=== PATIENT | female | born 1995 | race Caucasian/White ===

== ENCOUNTER 2018-04-11 15:24 | Outpatient (CLI) | payer BC, OTHER ==
[~2018-04-11 15:24] MED LIST: CIPRO500 MG PO; SPRINTEC1 EACH PO
[2018-04-11 15:58] LABS: BASOPHIL (%) 0.2 % (0-1); EOSINOPHIL (%) 0.6 % (0-5); EOSINOPHIL COUNT 0.1 K/uL (0-0.3); HEMATOCRIT 33.9 % (36.0-46.0); HEMOGLOBIN 11.4 G/DL (11.9-15.5); IMMATURE GRANULOCYTE (%) 0.7 % (0.0-0.7); LYMPHOCYTE (%) 19.4 % (15-42); LYMPHOCYTE COUNT 2.5 K/uL (1.0-2.8); MCH 31.9 PG (29.0-34.0); MCHC 33.6 G/DL (30.0-36.0); MONOCYTE (%) 6.4 % (3-12); MONOCYTE COUNT 0.8 K/uL (0-0.8); NEUTROPHIL (%) 72.7 % (45-76); NEUTROPHIL COUNT 9.3 K/uL (1.8-6.4); PLATELET COUNT 195 K/uL (156-360); RBC DIS.WIDTH-CV 13.6 % (11.8-14.6); RBC DIS.WIDTH-SD 47.2 % (39-53); RED BLOOD COUNT 3.57 M/uL (3.80-5.20); WHITE BLOOD COUNT 12.8 K/uL (4.1-10.2)
[2018-04-11 16:03] VITALS: BP 129/68
[2018-04-11] MEDS ORDERED: PRENATAL TABLE1 EAC3 PO (16:05)
[2018-04-11] MEDS ORDERED: VITAMIN D31000 UNI2 PO (16:06)
[2018-04-11 16:09] LABS: ALBUMIN 3.4 g/dL (3.2-4.8); CHLORIDE 110 mEq/L (99-109); POTASSIUM 3.8 mEq/L (3.7-5.4); SODIUM 138 mEq/L (136-147)
[2018-04-11 16:12] LABS: GLUCOSE 111 mg/dL (70-99); TOTAL PROTEIN 6.7 g/dL (6.4-8.3)
[2018-04-11 16:13] LABS: TOTAL BILIRUBIN 0.2 mg/dL (0.0-1.0)
[2018-04-11 16:15] LABS: ALKALINE PHOSPHATASE 129 IU/L (3-129); CREATININE 0.6 mg/dL (0.6-1.3); GFR ESTIMATE (CALCULATED) > 59 mL/min/
[2018-04-11 16:16] LABS: UREA NITROGEN (BUN) 6 mg/dL (9-23)
[2018-04-11 16:17] LABS: AST (GOT) 11 IU/L (2-34)
[2018-04-11 16:18] VITALS: BP 125/61
[2018-04-11 16:18] LABS: ALT (GPT) 9 IU/L (3-49)
[2018-04-11 16:33] VITALS: BP 112/61
[2018-04-11 16:46] LABS: UR CREATININE CONCENTRATION 88.6 MG/DL
== END 2018-04-11 17:40 | disposition home or self-care (01) ==
LOC: LDRP-OP 15:24 → 2WEST 15:25 → LDRP-OP 05-20 09:36
PROVIDERS: Nurse Practitioner
DX: O16.3 Unspecified maternal hypertension, third trimester (principal); O99.213 Obesity complicating pregnancy, third trimester; E66.9 Obesity, unspecified; Z3A.38 38 weeks gestation of pregnancy
CPT/HCPCS: 59025; 80053; 82570; 84156; 85025; G0378

== ENCOUNTER 2018-04-16 10:21 | Outpatient (CLI) | payer BC, OTHER ==
[~2018-04-16] VITALS: Ht 157.5 cm; Wt 110.0 kg
[~2018-04-16 10:21] MED LIST changes: +PRENATAL TABLE1 EAC3 PO; +VITAMIN D31000 UNI2 PO
[2018-04-16 10:37] VITALS: BP 135/79
[2018-04-16 10:53] VITALS: BP 135/78
[2018-04-16 11:08] VITALS: BP 135/80
[2018-04-16 11:36] LABS: BASOPHIL (%) 0.3 % (0-1); EOSINOPHIL (%) 0.6 % (0-5); EOSINOPHIL COUNT 0.1 K/uL (0-0.3); HEMATOCRIT 33.6 % (36.0-46.0); HEMOGLOBIN 11.1 G/DL (11.9-15.5); IMMATURE GRANULOCYTE (%) 1.2 % (0.0-0.7); LYMPHOCYTE (%) 16.8 % (15-42); MCH 31.6 PG (29.0-34.0); MCV 95.7 FL (83-99); MONOCYTE (%) 5.2 % (3-12); MONOCYTE COUNT 0.6 K/uL (0-0.8); NEUTROPHIL (%) 75.9 % (45-76); NEUTROPHIL COUNT 8.9 K/uL (1.8-6.4); PLATELET COUNT 166 K/uL (156-360); RBC DIS.WIDTH-CV 13.9 % (11.8-14.6); RBC DIS.WIDTH-SD 48.1 % (39-53); RED BLOOD COUNT 3.51 M/uL (3.80-5.20); WHITE BLOOD COUNT 11.8 K/uL (4.1-10.2)
[2018-04-16 11:48] LABS: ALBUMIN 3.3 g/dL (3.2-4.8); CHLORIDE 107 mEq/L (99-109); SODIUM 138 mEq/L (136-147)
[2018-04-16 11:52] LABS: GLUCOSE 106 mg/dL (70-99)
[2018-04-16 11:52] LABS: UR CREATININE CONCENTRATION 114.2 MG/DL
[2018-04-16 11:54] LABS: ALKALINE PHOSPHATASE 129 IU/L (3-129); CREATININE 0.6 mg/dL (0.6-1.3); GFR ESTIMATE (CALCULATED) > 59 mL/min/
[2018-04-16 11:55] LABS: TOTAL BILIRUBIN 0.3 mg/dL (0.0-1.0); UREA NITROGEN (BUN) 7 mg/dL (9-23)
[2018-04-16 11:56] LABS: AST (GOT) 11 IU/L (2-34)
[2018-04-16 11:57] LABS: ALT (GPT) 9 IU/L (3-49)
== END 2018-04-16 12:41 | disposition home or self-care (01) ==
LOC: LDRP-OP 10:21 → 2WEST 10:22 → LDRP-OP 05-20 18:05
PROVIDERS: Nurse Practitioner
DX: O16.3 Unspecified maternal hypertension, third trimester (principal); Z68.36 Body mass index [BMI] 36.0-36.9, adult; Z3A.39 39 weeks gestation of pregnancy
CPT/HCPCS: 59025; 80053; 82570; 84156; 85025; G0378

== ENCOUNTER 2018-04-21 10:30 | Outpatient (CLI) | payer BC, OTHER ==
[~2018-04-21] VITALS: Ht 157.5 cm; Wt 110.2 kg
[2018-04-21 10:47] VITALS: BP 117/66
[2018-04-21 11:10] VITALS: BP 112/68
[2018-04-21 11:27] LABS: APPEARANCE CLOUDY ((CLEAR)); BILIRUBIN NEGATIVE; BLOOD LARGE; COLOR YELLOW ((YELLOW)); GLUCOSE (STRIP) NEGATIVE; KETONES NEGATIVE; LEUKOCYTES SMALL; NITRITE NEGATIVE; PROTEIN (STRIP) 100; SPECIFIC GRAVITY 1.016 (1.000-1.030); UROBILINOGEN 0.2 MG/DL (0.2-1.0)
[2018-04-21 11:45] VITALS: BP 115/57
[2018-04-21 11:45] LABS: EPITHELIAL CELLS 4+ /HPF; RED BLOOD CELLS TNTC /HPF (0-5)
[2018-04-21 11:46] LABS: BACTERIA 2+ /HPF; MUCUS 1+ /LPF; UCUL ADDED? YES
[2018-04-21 12:14] LABS: BASOPHIL (%) 0.2 % (0-1); EOSINOPHIL (%) 0.6 % (0-5); EOSINOPHIL COUNT 0.1 K/uL (0-0.3); HEMATOCRIT 33.6 % (36.0-46.0); HEMOGLOBIN 11.4 G/DL (11.9-15.5); IMMATURE GRANULOCYTE (%) 0.8 % (0.0-0.7); LYMPHOCYTE (%) 16.4 % (15-42); MCHC 33.9 G/DL (30.0-36.0); MCV 94.4 FL (83-99); MONOCYTE (%) 4.9 % (3-12); MONOCYTE COUNT 0.6 K/uL (0-0.8); NEUTROPHIL (%) 77.1 % (45-76); NEUTROPHIL COUNT 9.5 K/uL (1.8-6.4); PLATELET COUNT 159 K/uL (156-360); RBC DIS.WIDTH-CV 13.8 % (11.8-14.6); RBC DIS.WIDTH-SD 47.4 % (39-53); RED BLOOD COUNT 3.56 M/uL (3.80-5.20); WHITE BLOOD COUNT 12.3 K/uL (4.1-10.2)
[2018-04-21 12:22] LABS: UR CREATININE CONCENTRATION 141.1 MG/DL
[2018-04-21 12:26] LABS: ALBUMIN 3.4 g/dL (3.2-4.8)
[2018-04-21 12:27] LABS: CHLORIDE 107 mEq/L (99-109); POTASSIUM 3.8 mEq/L (3.7-5.4); SODIUM 138 mEq/L (136-147)
[2018-04-21 12:29] LABS: GLUCOSE 108 mg/dL (70-99); TOTAL PROTEIN 6.6 g/dL (6.4-8.3)
[2018-04-21 12:31] LABS: TOTAL BILIRUBIN 0.3 mg/dL (0.0-1.0)
[2018-04-21 12:32] LABS: ALKALINE PHOSPHATASE 126 IU/L (3-129)
[2018-04-21 12:33] LABS: CREATININE 0.6 mg/dL (0.6-1.3); GFR ESTIMATE (CALCULATED) > 59 mL/min/
[2018-04-21 12:34] LABS: AST (GOT) 12 IU/L (2-34); UREA NITROGEN (BUN) 9 mg/dL (9-23)
[2018-04-21 12:35] LABS: ALT (GPT) 9 IU/L (3-49)
[2018-04-21] MEDS ORDERED: AMOXICILLIN500 M1 PO (12:56)
== END 2018-04-21 13:20 | disposition home or self-care (01) ==
LOC: LDRP-OP 10:30 → 2WEST 10:31 → LDRP-OP 04-30 13:07
PROVIDERS: Midwife
DX: O23.43 Unspecified infection of urinary tract in pregnancy, third trimester (principal); O99.213 Obesity complicating pregnancy, third trimester; E66.9 Obesity, unspecified; Z68.39 Body mass index [BMI] 39.0-39.9, adult; Z87.440 Personal history of urinary (tract) infections; Z3A.40 40 weeks gestation of pregnancy
CPT/HCPCS: 59025; 80053; 81003; 82570; 84156; 85025; 87086; G0378

== ENCOUNTER 2018-04-26 21:50 | Outpatient (CLI) | payer BC, OTHER ==
[~2018-04-26 21:50] MED LIST changes: +AMOXICILLIN500 M1 PO
[2018-04-26 22:08] VITALS: BP 127/73
[2018-04-27] MEDS ORDERED: AMOXICILLIN500 M1 PO (09:44)
== END 2018-04-26 23:03 | disposition home or self-care (01) ==
LOC: LDRP-OP 21:50 → 2WEST 21:51 → LDRP-OP 04-30 13:29
DX: O26.893 Other specified pregnancy related conditions, third trimester (principal); Z3A.41 41 weeks gestation of pregnancy
CPT/HCPCS: 59025; G0378

== ENCOUNTER 2018-04-27 08:55 | Inpatient (IN) | payer BC, OTHER ==
[~2018-04-27] VITALS: Ht 157.5 cm; Wt 111.3 kg
[2018-04-27] VITALS (31 sets, daily range): BP systolic 80–143; BP diastolic 49–86
[2018-04-27] MEDS ORDERED: AMOXICILLIN500 M1 PO (09:44)
[2018-04-27 12:05] LABS: AMPHETAMINE NEGATIVE (500 ng/mL); BARBITURATES NEGATIVE (200 ng/mL); BENZODIAZEPINES NEGATIVE (150 ng/mL); BUPRENORPHINE NEGATIVE (10 ng/mL); COCAINE NEGATIVE (150 ng/mL); METHADONE NEGATIVE (200 ng/mL); METHAMPHETAMINE NEGATIVE (500 ng/mL); OPIATES (MORPHINE) NEGATIVE (100 ng/mL); OXYCODONE NEGATIVE (100 ng/mL); PHENCYCLIDINE NEGATIVE (25 ng/mL); PROPOXYPHENE NEGATIVE (300 ng/mL); THC CANNABINOIDS NEGATIVE (50 ng/mL); TRICYCLIC ANTIDEPRESSANTS NEGATIVE (300 ng/mL)
[2018-04-27 12:31] LABS: BASOPHIL (%) 0.1 % (0-1); EOSINOPHIL (%) 0.5 % (0-5); EOSINOPHIL COUNT 0.1 K/uL (0-0.3); HEMATOCRIT 35.1 % (36.0-46.0); HEMOGLOBIN 11.9 G/DL (11.9-15.5); IMMATURE GRANULOCYTE (%) 0.6 % (0.0-0.7); LYMPHOCYTE (%) 15.1 % (15-42); LYMPHOCYTE COUNT 2.2 K/uL (1.0-2.8); MCH 31.9 PG (29.0-34.0); MCHC 33.9 G/DL (30.0-36.0); MCV 94.1 FL (83-99); MONOCYTE (%) 4.7 % (3-12); MONOCYTE COUNT 0.7 K/uL (0-0.8); NEUTROPHIL COUNT 11.4 K/uL (1.8-6.4); PLATELET COUNT 174 K/uL (156-360); RBC DIS.WIDTH-CV 14.2 % (11.8-14.6); RBC DIS.WIDTH-SD 47.5 % (39-53); RED BLOOD COUNT 3.73 M/uL (3.80-5.20); WHITE BLOOD COUNT 14.5 K/uL (4.1-10.2)
[2018-04-28] VITALS (19 sets, daily range): BP systolic 96–132; BP diastolic 44–70
[2018-04-28] MEDS ORDERED: IBUPROFEN800 MG PO (14:45)
[2018-04-29 06:18] LABS: BASOPHIL (%) 0.3 % (0-1); BASOPHIL COUNT 0.1 K/uL (0-0.1); EOSINOPHIL (%) 0.9 % (0-5); EOSINOPHIL COUNT 0.2 K/uL (0-0.3); HEMATOCRIT 27.8 % (36.0-46.0); IMMATURE GRANULOCYTE (%) 1.1 % (0.0-0.7); LYMPHOCYTE (%) 24.7 % (15-42); LYMPHOCYTE COUNT 4.2 K/uL (1.0-2.8); MCH 32.1 PG (29.0-34.0); MCHC 33.1 G/DL (30.0-36.0); MCV 96.9 FL (83-99); MONOCYTE (%) 7.7 % (3-12); MONOCYTE COUNT 1.3 K/uL (0-0.8); NEUTROPHIL (%) 65.3 % (45-76); NEUTROPHIL COUNT 11.2 K/uL (1.8-6.4); PLATELET COUNT 184 K/uL (156-360); RBC DIS.WIDTH-CV 14.7 % (11.8-14.6); RBC DIS.WIDTH-SD 51.2 % (39-53); WHITE BLOOD COUNT 17.1 K/uL (4.1-10.2)
[2018-04-29 06:22] LABS: HEMOGLOBIN 9.2 G/DL (11.9-15.5); RED BLOOD COUNT 2.87 M/uL (3.80-5.20)
[2018-04-29 07:14] VITALS: BP 138/70
[2018-04-29 15:01] VITALS: BP 126/67
== END 2018-04-30 11:33 | disposition home or self-care (01) | DRG 775 ==
LOC: LDRP-OP 08:55 → 2WEST 08:56 → LDRP-OP 04-30 23:15
PROVIDERS: Advanced Practice Midwife; Nurse Practitioner
PROC: 00HU33Z Insertion of Infusion Device into Spinal Canal, Percutaneous Approach (ICD-10-PCS; principal; 2018-04-28)
PROC: 3E033VJ Introduction of Other Hormone into Peripheral Vein, Percutaneous Approach (ICD-10-PCS; principal; 2018-04-28)
PROC: 10E0XZZ Delivery of Products of Conception, External Approach (ICD-10-PCS; principal; 2018-04-28)
PROC: 3E0R3BZ Introduction of Anesthetic Agent into Spinal Canal, Percutaneous Approach (ICD-10-PCS; principal; 2018-04-28)
PROC: 3E0P7VZ Introduction of Hormone into Female Reproductive, Via Natural or Artificial Opening (ICD-10-PCS; principal; 2018-04-28)
DX: O13.4 Gestational [pregnancy-induced] hypertension without significant proteinuria, complicating childbirth (principal); O70.0 First degree perineal laceration during delivery; O77.0 Labor and delivery complicated by meconium in amniotic fluid; O99.214 Obesity complicating childbirth; E66.9 Obesity, unspecified; Z68.39 Body mass index [BMI] 39.0-39.9, adult; O48.0 Post-term pregnancy; Z3A.41 41 weeks gestation of pregnancy; Z37.0 Single live birth; Z87.440 Personal history of urinary (tract) infections
CPT/HCPCS: 85025; C1755; G0378; J0595; J3010; J7120